=== PATIENT | male | born 1945 | race Caucasian/White ===

== ENCOUNTER 2019-04-25 09:29 | Outpatient (RCR) | payer MEDICARE ==
[2019-03-28 11:01] LABS: PROTHROMBIN TIME PATIENT 23.7 SEC (12.2-14.7)
[~2019-04-25 09:29] MED LIST: GLUC1CAP37 PO; HYDR12.56 PO; LISI40TA PO; OXYC1TAB87 PO
[2019-04-25 09:58] LABS: INR 2.3 (0.8-1.4); PROTHROMBIN TIME PATIENT 26.5 SEC (12.2-14.7)
== END 2019-06-26 | disposition home or self-care (01) ==
LOC: LAB FS 09:29
PROVIDERS: ATTEND Family Medicine
DX: I48.91 Unspecified atrial fibrillation (principal)
CPT/HCPCS: 36415; 85610

== ENCOUNTER 2019-05-23 08:30 | Outpatient (RCR) | payer MEDICARE ==
[2019-05-23 09:13] LABS: INR 2.4 (0.8-1.4); PROTHROMBIN TIME PATIENT 27.6 SEC (12.2-14.7)
[2019-07-04 10:52] LABS: INR 2.7 (0.8-1.4)
== END 2019-08-21 | disposition home or self-care (01) ==
LOC: LAB FS 08:30
PROVIDERS: ATTEND Family Medicine
DX: I48.91 Unspecified atrial fibrillation (principal)
CPT/HCPCS: 36415; 85610

== ENCOUNTER → 2019-08-11 | Outpatient (CLI) | payer MEDICARE ==
[2019-08-11 09:10] LABS: ALANINE AMINOTRANSFERASE 20 U/L (0-55); ALBUMIN 4.5 GM/DL (3.2-4.5); ALKALINE PHOSPHATASE 73 U/L (40-136); BILIRUBIN,TOTAL 0.6 MG/DL (0.1-1.0); BUN/CREATININE RATIO 19; CALCIUM 9.4 MG/DL (8.5-10.1); CARBON DIOXIDE 26 MMOL/L (21-32); CHLORIDE 101 MMOL/L (98-107); CREATININE SERUM 1.08 MG/DL (0.60-1.30); GFR ESTIMATED > 60; GLUCOSE 90 MG/DL (70-105); POTASSIUM 4.7 MMOL/L (3.6-5.0); SODIUM 139 MMOL/L (135-145); TOTAL PROTEIN 7.2 GM/DL (6.4-8.2)
[2019-08-11 14:58] LABS: TRIGLYCERIDES 71 MG/DL (<150); VLDL CHOLESTEROL 14 MG/DL (5-40)
[2019-08-11 15:03] LABS: CHOLESTEROL 233 MG/DL (< 200)
[2019-08-11 15:04] LABS: HDL CHOLESTEROL 60 MG/DL (40-60)
== END ==
LOC: LAB FS 08:16
PROVIDERS: ATTEND Family Medicine
DX: I10 Essential (primary) hypertension (principal)
CPT/HCPCS: 36415; 80053; 80061

== ENCOUNTER 2019-08-29 09:32 | Outpatient (RCR) | payer MEDICARE ==
[2019-08-29 10:13] LABS: PROTHROMBIN TIME PATIENT 26.6 SEC (12.2-14.7)
[2019-08-29 10:14] LABS: INR 2.4 (0.8-1.4)
[2019-09-21 09:58] LABS: INR 2.7 (0.8-1.4); PROTHROMBIN TIME PATIENT 28.8 SEC (12.2-14.7)
== END 2019-11-27 | disposition home or self-care (01) ==
LOC: LAB FS 09:32
PROVIDERS: ATTEND Family Medicine
DX: I48.91 Unspecified atrial fibrillation (principal)
CPT/HCPCS: 36415; 85610

== ENCOUNTER 2019-10-12 08:44 | Outpatient (RCR) | payer MEDICARE ==
[2019-09-28 10:05] LABS: INR 2.4 (0.8-1.4)
[2019-10-05 09:28] LABS: INR 2.3 (0.8-1.4); PROTHROMBIN TIME PATIENT 25.4 SEC (12.2-14.7)
[2019-10-12 09:29] LABS: INR 2.4 (0.8-1.4); PROTHROMBIN TIME PATIENT 26.4 SEC (12.2-14.7)
[2019-11-07 09:53] LABS: INR 2.1 (0.8-1.4); PROTHROMBIN TIME PATIENT 24.1 SEC (12.2-14.7)
== END 2019-12-27 | disposition home or self-care (01) ==
LOC: LAB FS 08:44
PROVIDERS: ATTEND Family Medicine
DX: I48.91 Unspecified atrial fibrillation (principal)
CPT/HCPCS: 36415; 85610

== ENCOUNTER 2019-12-05 08:40 | Outpatient (RCR) | payer MEDICARE ==
[2019-12-05 09:44] LABS: INR 2.6 (0.8-1.4); PROTHROMBIN TIME PATIENT 28.1 SEC (12.2-14.7)
== END 2020-03-04 | disposition home or self-care (01) ==
LOC: LAB FS 08:40
PROVIDERS: ATTEND Family Medicine
DX: I48.91 Unspecified atrial fibrillation (principal)
CPT/HCPCS: 36415; 85610

== ENCOUNTER 2020-01-02 08:27 | Outpatient (RCR) | payer MEDICARE ==
[2020-01-02 10:08] LABS: INR 2.6 (0.8-1.4); PROTHROMBIN TIME PATIENT 27.9 SEC (12.2-14.7)
== END 2020-04-01 | disposition home or self-care (01) ==
LOC: LAB FS 08:27
PROVIDERS: ATTEND Family Medicine
DX: I48.91 Unspecified atrial fibrillation (principal)
CPT/HCPCS: 36415; 85610

== ENCOUNTER 2020-01-30 09:31 | Outpatient (RCR) | payer MEDICARE ==
[~2020-01-30 09:31] MED LIST changes: -LISI40TA PO; +LISI40TA9 PO
[2020-01-30 10:07] LABS: INR 2.3 (0.8-1.4); PROTHROMBIN TIME PATIENT 25.7 SEC (12.2-14.7)
== END 2020-04-29 | disposition home or self-care (01) ==
LOC: LAB FS 09:31
PROVIDERS: ATTEND Family Medicine
DX: I48.91 Unspecified atrial fibrillation (principal)
CPT/HCPCS: 36415; 85610

== ENCOUNTER → 2020-02-27 | Outpatient (CLI) | payer MEDICARE ==
[~2020-02-27] MED LIST changes: +LISI40TA PO; -LISI40TA9 PO
[2020-02-27 10:20] LABS: INR 2.4 (0.8-1.4); PROTHROMBIN TIME PATIENT 26.1 SEC (12.2-14.7)
== END ==
LOC: LAB FS 09:18
PROVIDERS: ATTEND Family Medicine
DX: I48.91 Unspecified atrial fibrillation (principal)
CPT/HCPCS: 36415; 85610

== ENCOUNTER → 2020-03-26 | Outpatient (CLI) | payer MEDICARE ==
[2020-03-26 10:14] LABS: INR 2.1 (0.8-1.4); PROTHROMBIN TIME PATIENT 24.1 SEC (12.2-14.7)
== END ==
LOC: LAB FS 09:24
PROVIDERS: ATTEND Family Medicine
DX: I48.91 Unspecified atrial fibrillation (principal)
CPT/HCPCS: 36415; 85610

== ENCOUNTER → 2020-03-26 | Outpatient (CLI) | payer MEDICARE | LOC: LAB FS 09:30 | PROVIDERS: ATTEND Internal Medicine Cardiovascular Disease | DX: I48.0 Paroxysmal atrial fibrillation (principal); Z79.899 Other long term (current) drug therapy | CPT/HCPCS: 36415; 84443; 84450; 84460 ==

== ENCOUNTER → 2020-04-24 | Outpatient (CLI) | payer MEDICARE ==
[2020-04-24 08:48] LABS: INR 2.4 (0.8-1.4); PROTHROMBIN TIME PATIENT 26.5 SEC (12.2-14.7)
[2020-04-24 08:50] LABS: CHLORIDE 104 MMOL/L (98-107); POTASSIUM 4.3 MMOL/L (3.6-5.0); SODIUM 140 MMOL/L (135-145)
[2020-04-24 08:51] LABS: ALANINE AMINOTRANSFERASE 11 U/L (0-55); ALKALINE PHOSPHATASE 79 U/L (40-136); BILIRUBIN,TOTAL 0.6 MG/DL (0.1-1.0); BUN/CREATININE RATIO 19; CALCIUM 9.6 MG/DL (8.5-10.1); CARBON DIOXIDE 27 MMOL/L (21-32); CREATININE SERUM 1.09 MG/DL (0.60-1.30); GFR ESTIMATED > 60; GLUCOSE 79 MG/DL (70-105); TOTAL PROTEIN 7.5 GM/DL (6.4-8.2)
[2020-04-24 08:52] LABS: ALBUMIN 4.4 GM/DL (3.2-4.5)
[2020-04-24 15:23] LABS: CHOLESTEROL 234 MG/DL (< 200); HDL CHOLESTEROL 51 MG/DL (40-60); TRIGLYCERIDES 129 MG/DL (<150); VLDL CHOLESTEROL 26 MG/DL (5-40)
== END ==
LOC: LAB FS 08:08
PROVIDERS: ATTEND Family Medicine
DX: I48.91 Unspecified atrial fibrillation (principal)
CPT/HCPCS: 36415; 80053; 80061; 85610

== ENCOUNTER 2020-05-21 09:07 | Outpatient (RCR) | payer MEDICARE ==
[~2020-05-21 09:07] MED LIST changes: -LISI40TA PO; +LISI40TA9 PO
[2020-05-21 09:58] LABS: INR 2.9 (0.8-1.4); PROTHROMBIN TIME PATIENT 30.1 SEC (12.2-14.7)
== END 2020-08-19 | disposition home or self-care (01) ==
LOC: LAB FS 09:07
PROVIDERS: ATTEND Family Medicine
DX: I48.91 Unspecified atrial fibrillation (principal)
CPT/HCPCS: 36415; 85610

== ENCOUNTER 2020-06-18 08:54 | Outpatient (RCR) | payer MEDICARE ==
[2020-06-18 09:39] LABS: INR 2.5 (0.8-1.4); PROTHROMBIN TIME PATIENT 26.9 SEC (12.2-14.7)
== END 2020-09-16 | disposition home or self-care (01) ==
LOC: LAB FS 08:54
PROVIDERS: ATTEND Family Medicine
DX: I48.91 Unspecified atrial fibrillation (principal)
CPT/HCPCS: 36415; 85610

== ENCOUNTER → 2020-07-16 | Outpatient (CLI) | payer MEDICARE ==
[2020-07-16 10:26] LABS: INR 2.1 (0.8-1.4); PROTHROMBIN TIME PATIENT 24.2 SEC (12.2-14.7)
== END ==
LOC: LAB FS 08:59
PROVIDERS: ATTEND Family Medicine
DX: I48.91 Unspecified atrial fibrillation (principal)
CPT/HCPCS: 36415; 85610

== ENCOUNTER → 2020-08-14 | Outpatient (CLI) | payer MEDICARE ==
[2020-08-14 10:11] LABS: INR 2.6 (0.8-1.4); PROTHROMBIN TIME PATIENT 28.1 SEC (12.2-14.7)
== END ==
LOC: LAB FS 08:11
PROVIDERS: ATTEND Family Medicine
DX: I48.91 Unspecified atrial fibrillation (principal)
CPT/HCPCS: 36415; 85610

== ENCOUNTER → 2020-09-11 | Outpatient (CLI) | payer MEDICARE ==
[2020-09-11 10:26] LABS: INR 2.6 (0.8-1.4); PROTHROMBIN TIME PATIENT 27.8 SEC (12.2-14.7)
== END ==
LOC: LAB FS 08:41
PROVIDERS: ATTEND Family Medicine
DX: I48.91 Unspecified atrial fibrillation (principal)
CPT/HCPCS: 36415; 85610

== ENCOUNTER → 2020-10-09 | Outpatient (CLI) | payer MEDICARE ==
[2020-10-09 09:10] LABS: INR 2.1 (0.8-1.4); PROTHROMBIN TIME PATIENT 23.9 SEC (12.2-14.7)
== END ==
LOC: LAB FS 08:14
PROVIDERS: ATTEND Family Medicine
DX: I48.91 Unspecified atrial fibrillation (principal)
CPT/HCPCS: 36415; 85610

== ENCOUNTER → 2020-11-06 | Outpatient (CLI) | payer MEDICARE ==
[2020-11-06 10:14] LABS: INR 2.6 (0.8-1.4)
== END ==
LOC: LAB FS 08:52
PROVIDERS: ATTEND Family Medicine
DX: I48.91 Unspecified atrial fibrillation (principal)
CPT/HCPCS: 36415; 85610

== ENCOUNTER → 2020-12-11 | Outpatient (CLI) | payer MEDICARE ==
[2020-12-11 09:33] LABS: PROTHROMBIN TIME PATIENT 21.2 SEC (12.2-14.7)
[2020-12-11 09:34] LABS: INR 1.8 (0.8-1.4)
== END ==
LOC: LAB FS 08:49
PROVIDERS: ATTEND Family Medicine
DX: I48.91 Unspecified atrial fibrillation (principal)
CPT/HCPCS: 36415; 85610

== ENCOUNTER → 2020-12-18 | Outpatient (CLI) | payer MEDICARE ==
[2020-12-18 10:05] LABS: PROTHROMBIN TIME PATIENT 23.5 SEC (12.2-14.7)
[2020-12-18 10:06] LABS: INR 2.1 (0.8-1.4)
== END ==
LOC: LAB FS 09:04
PROVIDERS: ATTEND Family Medicine
DX: I48.91 Unspecified atrial fibrillation (principal)
CPT/HCPCS: 36415; 85610

== ENCOUNTER → 2021-01-15 | Outpatient (CLI) | payer MEDICARE ==
[2021-01-15 11:35] LABS: INR 2.5 (0.8-1.4); PROTHROMBIN TIME PATIENT 27.8 SEC (12.2-14.7)
== END ==
LOC: LAB FS 10:03
PROVIDERS: ATTEND Family Medicine
DX: I48.91 Unspecified atrial fibrillation (principal)
CPT/HCPCS: 36415; 85610

== ENCOUNTER 2021-02-13 08:37 | Outpatient (RCR) | payer MEDICARE ==
[2021-02-13 09:22] LABS: INR 2.2 (0.8-1.4); PROTHROMBIN TIME PATIENT 25.3 SEC (12.2-14.7)
== END 2021-03-15 | disposition home or self-care (01) ==
LOC: LAB FS 08:37
PROVIDERS: ATTEND Family Medicine
DX: I48.20 Chronic atrial fibrillation, unspecified (principal)
CPT/HCPCS: 36415; 85610

== ENCOUNTER → 2021-03-12 | Outpatient (CLI) | payer MEDICARE ==
[2021-03-12 10:12] LABS: INR 2.3 (0.8-1.4); PROTHROMBIN TIME PATIENT 25.8 SEC (12.2-14.7)
== END ==
LOC: LAB FS 09:24
PROVIDERS: ATTEND Family Medicine
DX: I48.20 Chronic atrial fibrillation, unspecified (principal)
CPT/HCPCS: 36415; 85610

== ENCOUNTER 2021-04-09 08:49 | Outpatient (RCR) | payer MEDICARE ==
[2021-04-09 09:51] LABS: INR 3.2 (0.8-1.4); PROTHROMBIN TIME PATIENT 33.2 SEC (12.2-14.7)
== END 2021-04-15 | disposition home or self-care (01) ==
LOC: LAB FS 08:49
PROVIDERS: ATTEND Family Medicine
DX: I48.20 Chronic atrial fibrillation, unspecified (principal)
CPT/HCPCS: 36415; 85610

== ENCOUNTER 2021-05-07 09:27 | Outpatient (RCR) | payer MEDICARE ==
[2021-05-07 10:31] LABS: INR 2.3 (0.8-1.4); PROTHROMBIN TIME PATIENT 26.1 SEC (12.2-14.7)
== END 2021-05-13 | disposition home or self-care (01) ==
LOC: LAB FS 09:27
PROVIDERS: ATTEND Family Medicine
DX: I48.20 Chronic atrial fibrillation, unspecified (principal)
CPT/HCPCS: 36415; 85610

== ENCOUNTER 2021-06-04 08:27 | Outpatient (RCR) | payer MEDICARE ==
[2021-06-04 09:02] LABS: INR 2.8 (0.8-1.4); PROTHROMBIN TIME PATIENT 30.2 SEC (12.2-14.7)
== END 2021-06-13 | disposition home or self-care (01) ==
LOC: LAB FS 08:27
PROVIDERS: ATTEND Family Medicine
DX: I48.20 Chronic atrial fibrillation, unspecified (principal)
CPT/HCPCS: 36415; 85610

== ENCOUNTER 2021-07-02 09:04 | Outpatient (RCR) | payer MEDICARE ==
[2021-07-02 09:33] LABS: INR 2.5 (0.8-1.4); PROTHROMBIN TIME PATIENT 27.3 SEC (12.2-14.7)
== END 2021-07-13 ==
LOC: LAB FS 09:04
PROVIDERS: ATTEND Family Medicine
DX: I48.20 Chronic atrial fibrillation, unspecified (principal)
CPT/HCPCS: 36415; 85610

== ENCOUNTER 2021-07-30 07:39 | Outpatient (RCR) | payer MEDICARE ==
[2021-07-30 09:00] LABS: INR 2.2 (0.8-1.4); PROTHROMBIN TIME PATIENT 24.8 SEC (12.2-14.7)
== END 2021-08-13 | disposition home or self-care (01) ==
LOC: LAB FS 07:39
PROVIDERS: ATTEND Family Medicine
DX: I48.20 Chronic atrial fibrillation, unspecified (principal)
CPT/HCPCS: 36415; 85610

== ENCOUNTER 2021-08-27 10:42 | Outpatient (RCR) | payer MEDICARE ==
[2021-08-27 12:04] LABS: INR 2.3 (0.8-1.4)
== END 2021-09-12 | disposition home or self-care (01) ==
LOC: LAB FS 10:42
PROVIDERS: ATTEND Family Medicine
DX: I48.20 Chronic atrial fibrillation, unspecified (principal)
CPT/HCPCS: 36415; 85610

== ENCOUNTER → 2021-08-27 | Outpatient (CLI) | payer MEDICARE ==
[2021-08-27 11:55] LABS: CALCIUM 9.8 MG/DL (8.5-10.1); CREATININE SERUM 0.96 MG/DL (0.60-1.30); POTASSIUM 4.4 MMOL/L (3.6-5.0)
[2021-08-27 11:56] LABS: ALBUMIN 4.5 GM/DL (3.2-4.5); BILIRUBIN,TOTAL 0.5 MG/DL (0.1-1.0); TOTAL PROTEIN 7.7 GM/DL (6.4-8.2)
== END ==
LOC: LAB FS 08:26
PROVIDERS: ATTEND Family Medicine
DX: Z00.00 Encounter for general adult medical examination without abnormal findings (principal); E78.5 Hyperlipidemia, unspecified
CPT/HCPCS: 36415; 80053; 80061

== ENCOUNTER 2021-09-25 09:31 | Outpatient (RCR) | payer MEDICARE ==
[2021-09-25 10:30] LABS: INR 2.3 (0.8-1.4); PROTHROMBIN TIME PATIENT 25.4 SEC (12.2-14.7)
== END 2021-10-13 | disposition home or self-care (01) ==
LOC: LAB FS 09:31
PROVIDERS: ATTEND Family Medicine
DX: I48.20 Chronic atrial fibrillation, unspecified (principal)
CPT/HCPCS: 36415; 85610

== ENCOUNTER 2021-10-22 08:07 | Outpatient (RCR) | payer MEDICARE ==
[2021-10-22 08:51] LABS: INR 2.6 (0.8-1.4); PROTHROMBIN TIME PATIENT 28.6 SEC (12.2-14.7)
== END 2021-11-13 | disposition home or self-care (01) ==
LOC: LAB FS 08:07
PROVIDERS: ATTEND Family Medicine
DX: I48.20 Chronic atrial fibrillation, unspecified (principal)
CPT/HCPCS: 36415; 85610

== ENCOUNTER → 2021-11-20 | Outpatient (CLI) | payer MEDICARE ==
[~2021-11-20] MED LIST changes: +CATHETER FLUSH 10 ML SYR IV PRN; +HOLD METFORMIN - RECEIVED CONTRAST 20 ML VIAL IV SCH; +IOHEXOL 350 MG/ML 100 ML (OMNIPAQUE 350) VIAL IV ONE; +NS 100 ML (IVPB) BAG IV ONE
[2021-11-20 10:30] LABS: CREATININE SERUM 0.81 MG/DL (0.60-1.30)
--- NOTE | 2021-11-20 15:31 | Diagnostic Imaging Report ---
EXAMINATION: CT chest with intravenous contrast. TECHNIQUE: Multiple contiguous axial images were obtained through the chest after the uneventful administration of intravenous contrast. All CT scans use one or more of the following dose optimizing techniques: Automated exposure control, MA and/or KvP adjustment based on patient size and exam type or iterative reconstruction. HISTORY: Solitary pulmonary nodule. COMPARISON: 01/08/2015. FINDINGS: Thyroid: The thyroid is normal. Mediastinum: Heart size is normal without significant pericardial effusion. There is aneurysmal dilatation of the ascending thoracic aorta measuring up to 4.7 cm. There are vascular calcifications of the aorta and coronary vessels. No suspicious lymphadenopathy. Lungs and airways: There are background emphysematous changes of the lungs. There is right lower lobe linear atelectasis or scarring. There is a left upper lobe pulmonary nodule which measures up to 2.7 x 2.2 cm (series 5, image 68). There are additional subcentimeter nodules along the left major fissure and within the left upper lobe measuring up to 0.4 cm (series 5, image 100). No pleural effusion or pneumothorax. There is mild bronchial wall thickening. Upper abdomen: The subphrenic structures are normal. Musculoskeletal: Degenerative changes of the spine without suspicious osseous lesion or compression fracture. IMPRESSION: 1. A 2.7 x 2.2 cm left upper lobe pulmonary nodule is suspicious for pulmonary neoplasm. Consider further evaluation with PET/CT or CT-guided biopsy. 2. COPD. 3. Subcentimeter pulmonary nodules measuring up to 0.4 cm in the left upper lobe. Recommend attention on follow-up imaging. Dictated by: Dictated on workstation # [id number]
== END ==
LOC: LAB FS 09:46
PROVIDERS: ATTEND Family Medicine
DX: J44.9 Chronic obstructive pulmonary disease, unspecified (principal); I48.20 Chronic atrial fibrillation, unspecified; R91.8 Other nonspecific abnormal finding of lung field
CPT/HCPCS: 36415; 71260; 82565; 84520; 85610; Q9967

== ENCOUNTER → 2021-12-13 | Outpatient (CLI) | payer MEDICARE ==
[~2021-12-13] MED LIST changes: -CATHETER FLUSH 10 ML SYR IV PRN; -HOLD METFORMIN - RECEIVED CONTRAST 20 ML VIAL IV SCH; -IOHEXOL 350 MG/ML 100 ML (OMNIPAQUE 350) VIAL IV ONE; -NS 100 ML (IVPB) BAG IV ONE
[2021-12-13 10:11] LABS: BASOPHILS # (AUTO) 0.1 10^3/uL (0.0-0.1); BASOPHILS % (AUTO) 1 % (0-10); EOSINOPHILS # (AUTO) 0.1 10^3/uL (0.0-0.3); EOSINOPHILS % (AUTO) 1 % (0-10); HEMATOCRIT 38 % (40-54); HEMOGLOBIN 12.4 g/dL (13.3-17.7); LYMPHOCYTES # (AUTO) 1.8 10^3/uL (1.0-4.0); LYMPHOCYTES % (AUTO) 32 % (12-44); MEAN CORPUSCULAR HEMOGLOBIN 30 pg (25-34); MEAN CORPUSCULAR HGB CONC 33 g/dL (32-36); MEAN CORPUSCULAR VOLUME 90 fL (80-99); MEAN PLATELET VOLUME 8.6 fL (9.0-12.2); MONOCYTES # (AUTO) 0.5 10^3/uL (0.0-1.0); MONOCYTES % (AUTO) 8 % (0-12); NEUTROPHILS # (AUTO) 3.3 10^3/uL (1.8-7.8); NEUTROPHILS % (AUTO) 57 % (42-75); PLATELET COUNT 303 10^3/uL (130-400); WHITE BLOOD COUNT 5.7 10^3/uL (4.3-11.0)
== END ==
LOC: LAB FS 09:42
PROVIDERS: ATTEND Family Medicine
DX: R91.8 Other nonspecific abnormal finding of lung field (principal)
CPT/HCPCS: 36415; 85025

== ENCOUNTER 2022-01-01 09:49 | Outpatient (RCR) | payer MEDICARE ==
[2021-12-25 09:32] LABS: INR 1.3 (0.8-1.4); PROTHROMBIN TIME PATIENT 16.5 SEC (12.2-14.7)
[2022-01-01 10:17] LABS: INR 2.3 (0.8-1.4); PROTHROMBIN TIME PATIENT 25.4 SEC (12.2-14.7)
== END 2022-01-13 | disposition home or self-care (01) ==
LOC: LAB FS 09:49
PROVIDERS: ATTEND Family Medicine
DX: I48.20 Chronic atrial fibrillation, unspecified (principal)
CPT/HCPCS: 36415; 85610

== ENCOUNTER → 2022-01-17 | Outpatient (CLI) | payer MEDICARE ==
[2022-01-17 09:18] LABS: HEMATOCRIT 40 % (40-54); HEMOGLOBIN 13.1 g/dL (13.3-17.7); MEAN CORPUSCULAR HEMOGLOBIN 30 pg (25-34); MEAN CORPUSCULAR HGB CONC 33 g/dL (32-36); MEAN CORPUSCULAR VOLUME 91 fL (80-99); MEAN PLATELET VOLUME 8.6 fL (9.0-12.2); PLATELET COUNT 282 10^3/uL (130-400); WHITE BLOOD COUNT 6.4 10^3/uL (4.3-11.0)
[2022-01-17 09:41] LABS: CALCIUM 9.6 MG/DL (8.5-10.1); CREATININE SERUM 0.87 MG/DL (0.60-1.30); POTASSIUM 4.6 MMOL/L (3.6-5.0)
== END ==
LOC: LAB FS 08:53
DX: C34.12 Malignant neoplasm of upper lobe, left bronchus or lung (principal)
CPT/HCPCS: 36415; 80048; 85027

== ENCOUNTER 2022-01-31 08:50 | Outpatient (RCR) | payer MEDICARE ==
[2022-01-31 09:26] LABS: PROTHROMBIN TIME PATIENT 19.9 SEC (12.2-14.7)
[2022-01-31 09:27] LABS: INR 1.6 (0.8-1.4)
== END 2022-02-12 | disposition home or self-care (01) ==
LOC: LAB FS 08:50
PROVIDERS: ATTEND Family Medicine
DX: I48.20 Chronic atrial fibrillation, unspecified (principal)
CPT/HCPCS: 36415; 85610

== ENCOUNTER → 2022-02-07 | Outpatient (CLI) | payer MEDICARE ==
[2022-02-07 10:27] LABS: INR 2.8 (0.8-1.4); PROTHROMBIN TIME PATIENT 29.6 SEC (12.2-14.7)
== END ==
LOC: LAB FS 09:34
PROVIDERS: ATTEND Family Medicine
DX: Z79.01 Long term (current) use of anticoagulants (principal)
CPT/HCPCS: 36415; 85610

== ENCOUNTER → 2022-04-16 | Outpatient (CLI) | payer MEDICARE ==
--- NOTE | 2022-04-16 15:37 | Diagnostic Imaging Report ---
INDICATION: Shortness of air. Patient is status post left lobectomy for lung carcinoma. TIME OF EXAM: 02:26 p.m. COMPARISON: Correlation is made with prior CT study of the chest from 11/20/2021. FINDINGS: Postop changes to the left hemithorax are noted. There is air density in the left upper chest, consistent with pneumothorax. There is some infiltrate identified in the midportion of the left lung, suggestive of pneumonia. Right lung is clear. No significant effusion is seen. IMPRESSION: Postop changes on the left. There appears to be some infiltrate in the mid left lung, suggestive of pneumonia. There is a left apical pneumothorax. Dictated by: Dictated on workstation # [id number]
== END ==
LOC: RAD FS 14:06
DX: J95.811 Postprocedural pneumothorax (principal); C34.12 Malignant neoplasm of upper lobe, left bronchus or lung; Z90.2 Acquired absence of lung [part of]
CPT/HCPCS: 71046